=== PATIENT | female | born 1945 | race Caucasian/White ===

== ENCOUNTER → 2024-07-30 08:00 | Outpatient (REF) | payer OTHER, SELFPAY | LOC: WDC 08:00 | PROVIDERS: ATTENDING PHYSICIAN Family Medicine | DX: Z12.31 Encounter for screening mammogram for malignant neoplasm of breast (principal) | CPT/HCPCS: 77063; 77067 ==

== ENCOUNTER → 2024-09-24 06:38 | Outpatient (REF) | payer OTHER, SELFPAY | LOC: PAVMRI 06:38 | PROVIDERS: ATTENDING PHYSICIAN Nurse Practitioner Adult Health | DX: R52 Pain, unspecified (principal); M54.2 Cervicalgia | CPT/HCPCS: 72141 ==

== ENCOUNTER 2024-11-30 11:43 | Emergency (ER) | payer OTHER, SELFPAY ==
[2024-11-30 11:46] VITALS: BP 168/98
[2024-11-30 12:34] VITALS: BMI 22.1
--- NOTE | 2024-11-30 13:27 | ED.GENMED ---
History of Present Illness
General
Chief Complaint: Skin Surface Trauma
Time Seen by Provider: 11/30/24 12:56
History of Present Illness
History of Present Illness:
79-year-old female presents to the emergency department for evaluation of a laceration to the left lower leg sustained on a congregational pew this morning. Last tetanus is unknown
Past History
Past History
ED Past Medical History: HTN
ED Past Surgical History: Gynecological (Hysterectommy)
Social History
Tobacco: Non-smoker
Alcohol: Occasional
Drug: None
Personal:
Living: with family
Review of Systems
Review of Systems
Allergies reviewed?: Yes
All Other Systems: ROS reviewed and negative except as documented in HPI and ROS
Phy Exam
Physical Exam
Physical Exam:
GEN: Well appearing, NAD, WDWN
HEENT: Oral mucosa moist, no scleral icterus
Cardiac: Regular rate
Lung: No respiratory distress, no tachypnea
MSK: No gross deformity or injuries
Skin: Good color, no pallor or jaundice, no rashes. 3.5 cm V-shaped laceration to the left lateral lower leg
Neuro: AO x3, moves all extremities freely
Psych: Calm, cooperative
Course
Orders/Labs/Results
Orders:
Orders
11/30/24 13:26
Tetanus/Diphth/Acelpertussis [Adacel] 0.5 ml IM .ONCE ONE
Vital Signs
Initial and Last Documented VS:
Initial Vital Signs
Temp Pulse Resp BP Pulse Ox
98.5 F 93 18 168/98 98
11/30/24 11:46 11/30/24 11:46 11/30/24 11:46 11/30/24 11:46 11/30/24 11:46
Last Documented Vital Signs
Temp Pulse Resp BP Pulse Ox
98.5 F 93 18 168/98 98
11/30/24 11:46 11/30/24 11:46 11/30/24 11:46 11/30/24 11:46 11/30/24 11:46
Procedures
Laceration Closure
Left Lower Leg:
Status of Wound: clean
Size of Wound in cm: 3.5
Description of Wound Edges: sharp
Preparation: cleaned with soap & water
Anesthesia: 1% Lidocaine with epi
Wound exploration: explored to base- no FB
Type of Closure: single layer closure
Skin Closure Material: 4-0 nylon
Number of sutures: 4
MDM/Problems Addressed
MDM/Problems Addressed:
External sutures inserted, discussed wound care and supportive care
*Critical Care Note
Total Time (30-74mins, 75-104mins- exclusive of procedures): Not Applicable
ED Attending Note
-
Portions of this chart may have been created with voice recognition software.� Occasional wrong word or��sound alike� substitutions may have occurred due to the inherent limitations of voice recognition software.
Discharge Plan
Departure
Patient Disposition: Home (Routine Discharge)
Date of Disposition: 11/30/24
Time of Disposition: 13:27
Patient with high blood pressure during this ER visit?: No
Discharge Problem:
Laceration of left leg
Instructions: Laceration Repair With Stitches (DC)
Referrals:
Allyson Bolivar MD [Family Provider] -
Activity Restrictions/Additional Instructions:
Keep dry for 24 hours then gently wash with soap and water
Tape strips will fall off in 3-4 days; sutures will need to be removed in 10-14 days
Change bandage daily with non stick gauze
Interventions
Interventions:
*Risk Screen - Suicide Last Done: 11/30/24 11:46
*General Assessment Last Done: 11/30/24 11:46
*Neglect/Abuse Screening Last Done: 11/30/24 11:46
ED- Fall Risk Assessment Last Done: 11/30/24 12:34
*ED COVID-19 Vaccine History Last Done: 11/30/24 11:46
*Nursing Disposition Last Done: 11/30/24 13:55
ED-Skin Assessment Last Done: 11/30/24 12:34
Discharge Date and Time
Discharge Date/Time: 11/30/24 13:56
Print Language: ICELANDIC
[2024-11-30] MEDS: ADACEL 0.5 ML IM (13:35)
== END 2024-11-30 13:56 | disposition home or self-care (01) ==
LOC: EMR 11:43
PROVIDERS: EMERGENCY PHYSICIAN Emergency Medicine; FAMILY PHYSICIAN Family Medicine
DX: S81.812A Laceration without foreign body, left lower leg, initial encounter (principal); W22.09XA Striking against other stationary object, initial encounter; I10 Essential (primary) hypertension; Z23 Encounter for immunization
CPT/HCPCS: 12002; 90471; 99282; 90715

== ENCOUNTER → 2025-04-20 06:38 | Outpatient (REF) | payer OTHER, SELFPAY | LOC: MRI 3T 06:38 | PROVIDERS: ATTENDING PHYSICIAN Specialist; FAMILY PHYSICIAN Family Medicine | DX: M54.16 Radiculopathy, lumbar region (principal) | CPT/HCPCS: 72148 ==

== ENCOUNTER → 2025-05-01 16:29 | Outpatient (REF) | payer OTHER, SELFPAY | LOC: RAD 16:29 | PROVIDERS: ATTENDING PHYSICIAN Family Medicine | DX: S09.90XA Unspecified injury of head, initial encounter (principal); R42 Dizziness and giddiness | CPT/HCPCS: 70450 ==

== ENCOUNTER → 2025-08-04 13:57 | Outpatient (REF) | payer OTHER, SELFPAY | LOC: WDC 13:57 | PROVIDERS: ATTENDING PHYSICIAN Family Medicine | DX: Z12.31 Encounter for screening mammogram for malignant neoplasm of breast (principal); Z78.0 Asymptomatic menopausal state | CPT/HCPCS: 77063; 77067; 77080 ==

== ENCOUNTER → 2025-10-12 08:18 | Outpatient (REF) | payer OTHER, SELFPAY | LOC: HWRAD 08:18 | PROVIDERS: ATTENDING PHYSICIAN Family Medicine; FAMILY PHYSICIAN Registered Nurse | DX: N18.31 Chronic kidney disease, stage 3a (principal) | CPT/HCPCS: 74176 ==